=== PATIENT | female | born 1950 | race Caucasian/White ===

== ENCOUNTER 2021-09-07 06:09 | Observation (INO) ==
[~2021-09-07 06:09] MED LIST: Povidone-Iodine 45 ML, Sodium Chloride IRRigation 1,000 ML IR ONE; TOTAL JOINT MIXTURE (100ML) INTRAART ONE
[2021-09-07] MEDS ORDERED: CeFAZolin Syr 2,000MG/20 ML 2,000 MG/20 ML SYRINGE IVPB ONE (06:19)
[2021-09-07] MEDS ORDERED: Acetaminophen IV 1,000 MG/100 ML BAG IVPB ONE (06:30)
[2021-09-07] MEDS ORDERED: Famotidine 20 MG/2 ML VIAL IVP ONE (06:30)
[2021-09-07] MEDS ORDERED: Ringers Solution, Lactated 1,000 ML IVC SCH ×2 (06:30→12:16)
[2021-09-07] MEDS ORDERED: *HR* FentaNYL (PF) 100 MCG/2 ML VIAL ONE ×2 (06:39→06:48)
[2021-09-07] MEDS ORDERED: Lidocaine -MPF 2% 5 ML VIAL ONE ×2 (06:39→06:48)
[2021-09-07] MEDS ORDERED: *HR* Midazolam HCl 2 MG/2 ML VIAL ONE ×2 (06:39→06:48)
[2021-09-07] MEDS ORDERED: Ondansetron 4 MG/2 ML VIAL ONE (06:39)
[2021-09-07] MEDS ORDERED: Lidocaine -MPF 4% 5 ML AMPUL ONE (06:39)
[2021-09-07] MEDS ORDERED: *HR* Propofol 200 MG/20 ML VIAL IVP ONE ×2 (06:39→09:14)
[2021-09-07] MEDS ORDERED: *HR* Succinylcholine 200 MG/10 ML VIAL IVP ONE (06:39)
[2021-09-07] MEDS ORDERED: *HR* Rocuronium Bromide 50 MG/5 ML VIAL ONE (06:39)
[2021-09-07] MEDS ORDERED: Tranexamic Acid 1,000 MG/10 ML VIAL ONE (06:44)
[2021-09-07] MEDS ORDERED: ROPIVACAINE/PF/NS 0.25% 1 EACH SYRINGE INTRAART ONE (06:49)
[2021-09-07] MEDS ORDERED: Ropivacaine/PF 0.5% 30 ML VIAL ONE (06:49)
[2021-09-07] MEDS ORDERED: Ondansetron 4 MG/2 ML VIAL IVP PRN ×2 (06:53→12:16)
[2021-09-07] MEDS ORDERED: EPHEDrine 50 MG/ML VIAL ONE (08:09)
[2021-09-07] MEDS ORDERED: *HR* Labetalol 20 MG/4 ML SYRINGE IVP ONE (09:10)
[2021-09-07] MEDS ORDERED: *HR* HYDROMORPHONE 2 MG/ML VIAL ONE (09:31)
[2021-09-07] MEDS ORDERED: Sugammadex Sodium 200 MG/2 ML VIAL IV ONE (09:48)
[2021-09-07] MEDS ORDERED: MOM Conc 10 ML UD.LIQ PO PRN (12:16)
[2021-09-07] MEDS ORDERED: Sennosides 8.6 MG TABLET PO PRN (12:16)
[2021-09-07] MEDS ORDERED: *HR* Promethazine 25 MG/ML VIAL IM PRN (12:16)
[2021-09-07] MEDS ORDERED: Morphine Sulfate 2 MG/ML SYRINGE IVP PRN (12:16)
[2021-09-07] MEDS ORDERED: Naloxone 0.4 MG/ML INJ IVP PRN (12:16)
[2021-09-07] MEDS: CeFAZolin 2 GM/120 ML BAG IVPB SCH ×2 (15:37→23:39)
[2021-09-07] MEDS: *HR* OxyCODONE Immed Rel 5 MG TABLET PO PRN (17:24)
[2021-09-07] MEDS: Ascorbic Acid 500 MG TABLET PO SCH (17:24)
[2021-09-08 05:12] LABS: BUN/Creatinine Ratio 21 (6-26); Blood Urea Nitrogen 13 mg/dL (8-23); Calcium 8.7 mg/dL (8.6-10.3); Carbon Dioxide 22 mEq/L (23-29); Chloride 110 mEq/L (98-107); Glucose 144 mg/dL (70-105); Osmolality,Calculated 291 (280-300); Potassium 4.3 mEq/L (3.5-5.1); Sodium 139 mEq/L (136-145); eGFR For African Americans > 60 (> 60); eGFR For Non-African Americans > 60 (> 60)
[2021-09-08 05:14] LABS: Basophils % 0.2 %; Hemoglobin 11.8 g/dL (11.5-15.4); Immature Granulocytes % 0.3 % (0-4); Lymphocytes # 0.8 K/mcL (0.6-4.6); Lymphocytes % 7.8 %; Mean Corpuscular HGB Conc 33.7 g/dL (31.6-35.5); Mean Corpuscular Hemoglobin 31.1 pg (28.0-33.3); Mean Corpuscular Volume 92.3 fL (83.0-100.0); Mean Platelet Volume 10.7 fL (9.4-12.4); Monocytes # 0.9 K/mcL (0.0-1.3); Monocytes % 8.6 %; Neutrophils # 8.4 K/mcL (1.6-8.9); Platelet Count 136 K/mcL (140-400); Red Blood Count 3.79 M/mcL (3.82-4.97); Red Cell Distribution Width 13.1 % (11.5-14.5); Segmented Neutrophils % 83.1 %; White Blood Count 10.1 K/mcL (4.3-11.1)
[2021-09-08] MEDS: Multivit/Ca/Min/Fe/FA 1 TAB TABLET PO SCH (08:48)
[2021-09-08] MEDS: Celecoxib 200 MG CAPSULE PO SCH (08:49)
[2021-09-08] MEDS: Ascorbic Acid 500 MG TABLET PO SCH ×2 (08:49→16:48)
[2021-09-08] MEDS: *HR* OxyCODONE Immed Rel 5 MG TABLET PO PRN ×3 (10:14→20:44)
[2021-09-08] MEDS: Aspirin Enteric Coated 325 MG Tablet PO SCH ×2 (11:42→20:44)
[2021-09-08] MEDS: Cyclosporine [Restasis] 1 EACH Droperette OP SCH ×2 (16:43→20:45)
[2021-09-09] MEDS: *HR* OxyCODONE Immed Rel 5 MG TABLET PO PRN ×2 (03:52→13:21)
[2021-09-09 06:51] LABS: Platelet Count 116 K/mcL (140-400)
[2021-09-09 06:53] LABS: Basophils % 0.1 %; Eosinophils # 0.1 K/mcL (0.0-0.6); Eosinophils % 0.8 %; Hemoglobin 11.1 g/dL (11.5-15.4); Immature Granulocytes % 0.4 % (0-4); Immature Platelets 6.6 % (1.1-6.1); Lymphocytes # 1.6 K/mcL (0.6-4.6); Lymphocytes % 19.4 %; Mean Corpuscular HGB Conc 33.6 g/dL (31.6-35.5); Mean Corpuscular Hemoglobin 31.2 pg (28.0-33.3); Mean Corpuscular Volume 92.7 fL (83.0-100.0); Monocytes # 1.1 K/mcL (0.0-1.3); Neutrophils # 5.6 K/mcL (1.6-8.9); Red Blood Count 3.56 M/mcL (3.82-4.97); Red Cell Distribution Width 13.2 % (11.5-14.5); Segmented Neutrophils % 66.3 %; White Blood Count 8.4 K/mcL (4.3-11.1)
[2021-09-09 07:07] LABS: BUN/Creatinine Ratio 25 (6-26); Blood Urea Nitrogen 16 mg/dL (8-23); Calcium 8.2 mg/dL (8.6-10.3); Carbon Dioxide 25 mEq/L (23-29); Chloride 105 mEq/L (98-107); Glucose 124 mg/dL (70-105); Osmolality,Calculated 289 (280-300); Potassium 3.8 mEq/L (3.5-5.1); Sodium 138 mEq/L (136-145); eGFR For African Americans > 60 (> 60); eGFR For Non-African Americans > 60 (> 60)
[2021-09-09 07:12] LABS: Platelet Estimate Slight Decrease (Normal)
[2021-09-09] MEDS: Aspirin Enteric Coated 325 MG Tablet PO SCH (08:49)
[2021-09-09] MEDS: Multivit/Ca/Min/Fe/FA 1 TAB TABLET PO SCH (08:50)
[2021-09-09] MEDS: Cyclosporine [Restasis] 1 EACH Droperette OP SCH (08:50)
[2021-09-09] MEDS: Celecoxib 200 MG CAPSULE PO SCH (08:50)
[2021-09-09] MEDS: Ascorbic Acid 500 MG TABLET PO SCH (08:50)
[2021-09-09 10:44] VITALS: BP 149/73; PULSE 74; TEMP 98; O2SAT 96
== END 2021-09-09 13:41 | disposition home or self-care (01) ==
LOC: 4WAOSI 06:09 → SDCAOSI 06:09 → 4WAOSI 12:03
PROVIDERS: ADMIT Orthopaedic Surgery; ATTEND Orthopaedic Surgery